=== PATIENT | female | born 1965 | race Caucasian/White ===

== ENCOUNTER 2023-12-26 15:03 | Outpatient (AMB) | payer OTHER, SELFPAY ==
--- NOTE | 2023-12-26 15:33 | MHC.PC.OV ---
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 Transferring care from Dr. Sheldon [facility]. Medical records have been requested. Exercise Physiology Professor Required: No Accompanied by: Self / Same As Patient Allergies No Known Allergies Allergy (Verified 12/26/23 15:52) Medication List - Last Reconciled 12/26/23 by Johan Huynh PA-C cyclobenzaprine 5 mg PO DAILY gabapentin 300 mg PO DAILY levothyroxine 75 mcg PO .morning Tobacco use date assessed: 12/26/23 Dental Screening Dental Screen Date: 12/26/23 Did you have a dental visit in the last 12 months?: No Did you have a dental problem in the last 6 months where you did not have access to dental care?: No Was dental information given to patient?: Patient has dentist HPI 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 Previous PCP was Dr. Venegas at a family medicine practice. Patient's past medical history significant for hypothyroidism, knee osteoarthritis, h/o of thoracic syndrome, asthma ( mild). 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 Thoracic outlet syndrome: Continues to use gabapentin and cyclobenzaprine on a as needed basis for her upper extremity pain. .. Hypothyroidism: Patient continues on levothyroxine 75 mcg which has been keeping her TSH stable for quite a while now. She reports having some medial right knee pain over the last several weeks. .. 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 1. Little interest or pleasure in doing things: not at all 2. Feeling down, depressed, or hopeless: not at all 3. Trouble falling or staying asleep, or sleeping too much: not at all 4. Feeling tired or having little energy: not at all 5. Poor appetite or overeating: not at all 6. Feeling bad about yourself - or that you are a failure or have let yourself or your family down: not at all 7. Trouble concentrating on things, such as reading the newspaper or watching television: not at all 8. Moving or speaking so slowly that other people could have noticed. Or the opposite - being so fidgety or restless that you have been moving around a lot more than usual: not at all 9. Thoughts that you would be better off or of hurting yourself in some way: not at all Total score: 0 Depression Screening Interpretation: Negative Depression Screening Done: Yes 24434 - PHQ-9 Billing: Yes Source: Developed by Drs. Dhaval Dinh, Kelly Jordan, Peter Agarwal and colleagues, with an educational andreina from [employer]. Thrive Questionnaire Date Thrive assessed: 12/26/23 I am a: Patient What is your living situation today?: I have a steady place to live Within the past 12 months, did the food you bought not last and you didn't have the money to get more?: Never true Within the past 12 months, did you worry whether your food would run out before you got money to buy more?: Never true Do you have trouble paying for medicines?: No Do you have trouble getting transportation to medical appointments?: No Do you have trouble paying your heating and electricity bill?: No Do you have trouble taking care of your child, family member or friend?: No Do you have trouble with day-to-day activities such as bathing, preparing meals, shopping, managing finances, etc.?: No Are you currently unemployed and looking for a job?: No Are you interested in more education?: No Please select the resources that you would like help with: None Currently or been in a relationship where the following occur: no concerns reported THRIVE Score: 0 AUDIT C Alcohol Use Questionnaire (AUDIT-C) 1. How often do you have a drink containing alcohol?: Never 3. How often do you have six or more drinks on one occasion?: Never Total Score: 0 REKHA-7 AMB Questionnaire REKHA-7 Date REKHA - 7 assessed: 12/26/23 Feeling nervous, anxious, or on edge: 2 = More than half the days Not being able to stop or control worryin = Several days Worrying too much about different things: 1 = Several days Trouble relaxin = More than half the days Being so restless that it is hard to sit still: 1 = Several days Becoming easily annoyed or irritable: 2 = More than half the days Feeling afraid as if something awful might happen: 0 = Not at all Total REKHA-7 score (0-4 normal; 5-9 mild; 10-14 moderate; 15-21 severe): 9 Source: Developed by Drs. Dhaval Dinh, Kelly Jordan, Peter Agarwal and colleagues, with an educational andreina from [employer]. REKHA-7 Assessment Billing REKHA-7 Assessment Tool: REKHA-7 Assessment 84242 Review of Systems Const Denies headache(s) Eyes Denies loss of vision ENT Denies vertigo, Denies dizziness, Denies headache(s) and Denies sore throat Card Denies chest pain, Denies leg edema and Denies lightheadedness Resp Denies cough, Denies hemoptysis and Denies wheezing GI Denies abdominal pain, Denies melena, Denies constipation, Denies diarrhea and Denies vomiting Denies urinary frequency, Denies dysuria and Denies urinary urgency Musc Denies arthralgias, Denies joint swelling, Denies numbness and Denies tingling Neuro Denies Abnormal speech present, Denies behavioral changes, Denies vertigo, Denies dizziness, Denies headache(s), Denies loss of vision, Denies memory loss, Denies numbness and Denies tingling Psych Denies anxiety, Denies behavioral changes, Denies depression, Denies memory loss and Denies panic attacks Rudy/Lymph Denies easy bleeding and Denies easy bruising Aller/Immun Denies wheezing Physical exam (Primary Care) Vital Signs: Last Vital Signs Pulse 88 12/26/23 15:34 Pulse Ox 99 12/26/23 15:34 Oxygen Delivery Method Room Air 12/26/23 15:34 BMI result Body Mass Index 26.0 Tobacco/Smoking Status: Tobacco use Status Tobacco use date assessed 12/26/23 12/26/23 15:51 Patient Tobacco Use Status Never used Tobacco 12/26/23 15:58 e-Cigarette/Vaping Use Never Used 12/26/23 15:58 PHQ-9: PHQ-9 Score PHQ-9: Total score 0 12/26/23 15:53 Depression Screening Interpretation: Negative Thrive Assessment: Date of Thrive Assessment Date Thrive assessed 12/26/23 12/26/23 15:51 Currently or been in a relationship where the following occur: no concerns reported Const General: healthy appearing, no acute distress, alert and awake Nutritional Appearance: well nourished Orientation/consciousness: oriented to person, oriented to place and oriented to time HENMT Ears: TM's normal bilaterally General nose exam: Normal nasal mucous membranes and turbinates present Eyes Conjunctivae: conjunctivae normal Sclerae: sclerae normal Pupils: Equal, round and reactive pupils present Neck Neck: Yes no lymphadenopathy and Yes no JVD Thyroid: Thyroid normal Carotids: no bruits Resp Effort & Inspection: normal respiratory effort and not tachypneic Auscultation: no crackles, no rales, no rhonchi and no wheezes Cardio Rate: regular rate Rhythm: regular rhythm Heart sounds: no murmurs and normal S1 and S2 GI Palpation (GI): Soft to palpation, nontender, no hepatomegaly and no splenomegaly Auscultation: normal bowel sounds Skin General skin exam: no rashes or lesions noted and dry skin Neuro General: oriented to person, oriented to place and oriented to time Cranial nerves: Yes Equal, round and reactive pupils present Speech: No Abnormal speech present Gait exam (Neuro): Normal gait present Motor exam (neuro): no tremor noted Extrem Right upper extremity: full ROM Left upper extremity: full ROM Right lower extremity: full ROM; no edema Left lower extremity: full ROM; no edema Psych Mental Status: mental status grossly normal Speech and movement: Normal speech and movement present Affect: normal affect Attitude: cooperative Thought process: Normal thought process present Assessment and Plan Assessment & Plan (1) Hypothyroid: Code(s): E03.9 - Hypothyroidism, unspecified Qualifiers: Hypothyroidism type: unspecified Qualified Code(s): E03.9 - Hypothyroidism, unspecified Plan: Patient continues on levothyroxine 75 mcg. Will recheck TSH to assure normal (2) Thoracic outlet syndrome: Code(s): G54.0 - Brachial plexus disorders Plan: Has a history of thoracic outlet syndrome which has led to neuromuscular pain in her upper extremities. She continues with gabapentin and cyclobenzaprine on an as-needed basis. (3) Screening for diabetes mellitus (DM): Code(s): Z13.1 - Encounter for screening for diabetes mellitus (4) H/O colonoscopy: Comment: DONE in 2019- family history colon screening Code(s): Z98.890 - Other specified postprocedural states (5) Breast cancer screening: Code(s): Z12.39 - Encounter for other screening for malignant neoplasm of breast Qualifiers: Breast cancer screening modality: mammogram Qualified Code(s): Z12.31 - Encounter for screening mammogram for malignant neoplasm of breast Plan: Willing to do mammogram (6) MCL sprain of right knee: Code(s): S83.411A - Sprain of medial collateral ligament of right knee, initial encounter Qualifiers: Encounter type: subsequent encounter Qualified Code(s): S83.411D - Sprain of medial collateral ligament of right knee, subsequent encounter Plan: Patient has some recent pain in the medial aspect of her right knee. Likely MCL sprain. Will benefit from physical therapy. (7) Osteoarthritis of hands, bilateral: Code(s): M19.041 - Primary osteoarthritis, right hand; M19.042 - Primary osteoarthritis, left hand Qualifiers: Osteoarthritis type: primary Qualified Code(s): M19.041 - Primary osteoarthritis, right hand; M19.042 - Primary osteoarthritis, left hand (8) Borderline high cholesterol: Code(s): E78.9 - Disorder of lipoprotein metabolism, unspecified Plan: Has a history of borderline high cholesterol. Does have a healthy lifestyle and eating habits. Will continue to follow fasting lipid panel. (9) REKHA (generalized anxiety disorder): Code(s): F41.1 - Generalized anxiety disorder Plan: Patient's REKHA-7 score positive for anxiety which has been existing condition for her. She has not interested in medication or mental health therapy at this time. Orders: Orders TSH reflex Free T4 12/26/23 E03.9 - Hypothyroidism, unspecified Cyclic Citrullinated Peptide 12/26/23 M19.041 - Primary osteoarthritis, right hand, M19.042 - Primary osteoarthritis, left hand Rheumatoid Factor 12/26/23 M19.041 - Primary osteoarthritis, right hand, M19.042 - Primary osteoarthritis, left hand PADMINI Reflex Titer and Pattern 12/26/23 M19.041 - Primary osteoarthritis, right hand, M19.042 - Primary osteoarthritis, left hand PT Evaluation and Treatment 12/26/23 M51.9 - Unspecified thoracic, thoracolumbar and lumbosacral intervertebral disc disorder MM screening mammo BI 12/26/23 Z12.31 - Encounter for screening mammogram for malignant neoplasm of breast Comprehensive [place]. Panel Fast 12/26/23 Z13.1 - Encounter for screening for diabetes mellitus Lipid Panel 12/26/23 E78.9 - Disorder of lipoprotein metabolism, unspecified Coding Level of Care Code Tele New Pt Level 4 (14337) Diagnoses Hypothyroidism, unspecified type E03.9 Hypothyroidism type: unspecified Thoracic outlet syndrome G54.0 Screening for diabetes mellitus (DM) Z13.1 H/O colonoscopy Z98.890 Encounter for screening mammogram for malignant neoplasm of breast Z12.31 Breast cancer screening modality: mammogram Sprain of medial collateral ligament of right knee, subsequent encounter S83.411D Encounter type: subsequent encounter Primary osteoarthritis of both hands M19.041; M19.042 Osteoarthritis type: primary Borderline high cholesterol E78.9 REKHA (generalized anxiety disorder) F41.1 Additional Codes REKHA-7 Assessment Billing - REKHA-7 Assessment Tool: REKHA-7 Assessment [id number] ([id number])
[2023-12-26 15:34] VITALS: PULSE 88; O2SAT 99; BMI 26.0
== END 2023-12-26 16:36 | disposition home or self-care (01) ==
PROVIDERS: PCP Physician Assistant; Visit Provider Physician Assistant
DX: E03.9 Hypothyroidism, unspecified (principal); G54.0 Brachial plexus disorders; F41.1 Generalized anxiety disorder; E78.9 Disorder of lipoprotein metabolism, unspecified; S83.411D Sprain of medial collateral ligament of right knee, subsequent encounter; M19.041 Primary osteoarthritis, right hand; M19.042 Primary osteoarthritis, left hand
CPT/HCPCS: 99204

== ENCOUNTER 2024-02-08 08:33 | Outpatient (REF) | payer OTHER, SELFPAY ==
--- NOTE | ~2024-02-08 | MM_ITS ---
EXAMINATION: MM SCREENING DIGITAL BREAST TOMOSYNTHESIS, BILATERAL CLINICAL INFORMATION: Screening. Asymptomatic. COMPARISON: Mammography: 08/06/2021. ([place], [place]). History of benign right breast biopsy. TECHNIQUE: Digital breast tomosynthesis is performed in both the craniocaudal and mediolateral oblique views along with computer-aided detection (CAD). Synthesized 2D images are generated from the tomosynthesis. FINDINGS: The breasts are heterogeneously dense, which may obscure small masses (ACR BI-RADS breast composition Category c). Post benign biopsy clip noted in the right breast anterior one third, upper outer quadrant. There are no suspicious masses, suspicious grouped calcifications, or areas of architectural distortion in either breast. The parenchymal pattern is stable from prior exams. No skin or axillary abnormality. MM/MM tomosynthesis screening BI IMPRESSION: No mammographic evidence of malignancy. No significant interval change. ASSESSMENT: BI-RADS BI-RADS 2 - Benign Findings RECOMMENDATION: Routine annual mammography screening. 1 year F/U This examination should not preclude the clinical evaluation of a suspicious palpable abnormality. This patient's information was entered into a reminder system with a target due date for their next mammogram.
== END 2024-02-08 08:34 | disposition home or self-care (01) ==
LOC: HO.MAMMO 08:33
PROVIDERS: PCP Physician Assistant; Visit Provider Physician Assistant
DX: Z12.31 Encounter for screening mammogram for malignant neoplasm of breast (principal)
CPT/HCPCS: 77063; 77067

== ENCOUNTER → 2024-02-08 08:45 | Outpatient (BNV) | payer OTHER, SELFPAY | PROVIDERS: PCP Physician Assistant; Visit Provider Radiology Diagnostic Radiology | DX: Z12.31 Encounter for screening mammogram for malignant neoplasm of breast (principal) | CPT/HCPCS: 77063; 77067 ==

== ENCOUNTER 2024-08-01 10:35 | Outpatient (REF) | payer MEDICARE, SELFPAY ==
[2024-08-01 11:57] LABS: Alanine Aminotransferase 20 U/L (0-31); Albumin Level 4.4 g/dL (3.5-5.0); Alkaline Phosphatase 88 U/L (39-117); Anion Gap 12 (12-20); Aspartate Amino Transferase 19 U/L (5-31); Bilirubin Total 0.4 mg/dL (0.0-1.0); Blood Urea Nitrogen 7 mg/dL (9-16); Calcium 10.3 mg/dL (8.4-10.2); Carbon Dioxide 29 mmol/L (22-29); Chloride 101 mmol/L (96-108); Cholesterol 205 mg/dL (<200); Estimated Glomerular Filt Rate > 60; Glucose Fasting 81 mg/dL (60-99); HDL Cholesterol 81 mg/dL (>40); LDL Cholesterol Calculated 101 mg/dL (<100); Potassium 4.3 mmol/L (3.3-5.1); Sodium 138 mmol/L (135-145); Total Protein 7.3 g/dL (6.5-8.0); Triglycerides 116 mg/dL (<150)
[2024-08-01 12:10] LABS: Rheumatoid Factor 24.3 IU/mL (<15.0)
[2024-08-01 12:14] LABS: TSH reflex Free T4 0.54 uIU/mL (0.32-4.0)
[2024-08-05 13:58] LABS: Anti Nuclear Antibody Screen NEGATIVE (NEGATIVE)
[2024-08-06 20:33] LABS: Cyclic Citrullinated Peptide <16 UNITS
== END 2024-08-01 10:36 | disposition home or self-care (01) ==
LOC: HO.LAB 10:35
PROVIDERS: PCP Physician Assistant; Visit Provider Physician Assistant
DX: M19.041 Primary osteoarthritis, right hand (principal); M19.042 Primary osteoarthritis, left hand; E78.9 Disorder of lipoprotein metabolism, unspecified; E03.9 Hypothyroidism, unspecified; Z13.1 Encounter for screening for diabetes mellitus
CPT/HCPCS: 36415; 80053; 80061; 84443; 86038; 86200; 86431

== ENCOUNTER 2024-08-08 13:23 | Outpatient (AMB) | payer OTHER, SELFPAY ==
--- NOTE | 2024-08-08 13:24 | A.OFFPC_ITS ---
Vital Signs 08/08/24 13:30 Height 5 ft 4.76 in Weight 143 lb 8 oz BMI 24.1 BP 104/62 Blood Pressure Location Lt brachial Position Sitting Pulse 103 H Pulse Source Pulse Oximeter Pulse Oximetry (%) 96 Oxygen Delivery Method Room Air Intake Visit Reasons: PE Intake Note: Patient is here today for a physical. External Relations Director Required: No Accompanied by: Self / Same As Patient Allergies No Known Allergies Allergy (Verified 08/08/24 13:31) Medication List - Last Reconciled 08/08/24 by Johan Huynh PA-C cyclobenzaprine 5 mg PO DAILY 90 days gabapentin 300 mg PO DAILY 90 days levothyroxine 75 mcg PO .morning 90 days Tobacco use date assessed: 12/26/23 Dental Screening Dental Screen Date: 12/26/23 HPI PE HPI Details Patient is a 59-year-old female here today for a routine annual physical. Patient's past medical history significant for hypothyroidism, knee osteoarthritis, h/o of thoracic syndrome, asthma ( mild). 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 Concern--> she has broken out with dry itchy skin over scalp and has been using topical moisturizing cream which has been somewhat helpful. .. Thoracic outlet syndrome: Continues to use gabapentin and cyclobenzaprine on a as needed basis for her upper extremity pain. .. Hypothyroidism: Patient continues on levothyroxine 75 mcg which has been keeping her TSH stable for quite a while now. Borderline high cholesterol: Most recent lipid panel showing slightly high cholesterol at 203. She will work on dietary modifications to reduce her cholesterol. .. Mammogram: Mammogram done January of 2024-BI-RADS 1 .. 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 Vacine: NEeds FLu vaccine though will get it at a local pharmacy Reviewed patient's labs with patient and noted a slightly borderline high total cholesterol Laboratory Tests 08/01/24 10:45 Creatinine 0.75 Cholesterol 205 H TSH 0.54 Rheumatoid Factor 24.3 H PFSH Surgical History H/O mastoidectomy H/O colonoscopy S/P nasal septoplasty Hx laparoscopic cholecystectomy Family History Mother Breast cancer Colon cancer Father High cholesterol Social History (Updated 08/08/24 @ 13:37 by Johan Huynh PA-C) Housing: Condominium Alcohol intake: current Alcohol intake frequency: holidays/special occasions only Patient Tobacco Use Status: Never used Tobacco e-Cigarette/Vaping Use: Never Used service: No Current occupational status: employed 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 1. Little interest or pleasure in doing things: not at all 2. Feeling down, depressed, or hopeless: not at all 3. Trouble falling or staying asleep, or sleeping too much: not at all 4. Feeling tired or having little energy: not at all 5. Poor appetite or overeating: not at all 6. Feeling bad about yourself - or that you are a failure or have let yourself or your family down: not at all 7. Trouble concentrating on things, such as reading the newspaper or watching television: not at all 8. Moving or speaking so slowly that other people could have noticed. Or the opposite - being so fidgety or restless that you have been moving around a lot more than usual: not at all 9. Thoughts that you would be better off or of hurting yourself in some way: not at all Total score: 0 Depression Screening Interpretation: Negative Depression Screening Done: Yes 79780 - PHQ-9 Billing: Yes Source: Developed by Drs. Dhaval Dinh, Kelly Jordan, Peter Agarwal and colleagues, with an educational andreina from [employer]. Thrive Questionnaire Date Thrive assessed: 08/08/24 I am a: Patient What is your living situation today?: I have a steady place to live Within the past 12 months, did the food you bought not last and you didn't have the money to get more?: Sometimes True Within the past 12 months, did you worry whether your food would run out before you got money to buy more?: Sometimes True Do you have trouble paying for medicines?: No Do you have trouble getting transportation to medical appointments?: No Do you have trouble paying your heating and electricity bill?: Yes Do you have trouble taking care of your child, family member or friend?: No Do you have trouble with day-to-day activities such as bathing, preparing meals, shopping, managing finances, etc.?: No Are you currently unemployed and looking for a job?: No Are you interested in more education?: Yes Please select the resources that you would like help with: None Currently or been in a relationship where the following occur: No concerns reported THRIVE Score: 3 AUDIT C Alcohol Use Questionnaire (AUDIT-C) 1. How often do you have a drink containing alcohol?: Never 2. How many drinks containing alcohol do you have on a typical day when you are drinking?: 1 or 2 3. How often do you have six or more drinks on one occasion?: Never Total Score: 0 REKHA-7 AMB Questionnaire REKHA-7 Date REKHA - 7 assessed: 08/08/24 Feeling nervous, anxious, or on edge: 1 = Several days Not being able to stop or control worryin = Not at all Worrying too much about different things: 1 = Several days Trouble relaxin = Several days Being so restless that it is hard to sit still: 0 = Not at all Becoming easily annoyed or irritable: 0 = Not at all Feeling afraid as if something awful might happen: 0 = Not at all Total REKHA-7 score (0-4 normal; 5-9 mild; 10-14 moderate; 15-21 severe): 3 Source: Developed by Drs. Dhaval Dinh, Kelly Jordan, Peter Agarwal and colleagues, with an educational andreina from [employer]. REKHA-7 Assessment Billing REKHA-7 Assessment Tool: REKHA-7 Assessment 56066 Review of Systems Const Denies body aches, Denies chills, Denies excessive sweating, Denies fatigue, Denies fever(s) and Denies headache(s) Eyes Denies blurry vision ENT Denies dysphagia, Denies vertigo, Denies dizziness, Denies headache(s), Denies hearing loss and Denies tinnitus Card Denies chest pain, Denies chest pain with activity, Denies syncope, Denies irregular heart rhythm and Denies dyspnea Resp Denies chest congestion, Denies cough, Denies hemoptysis, Denies dyspnea and Den ies wheezing GI Denies abdominal pain, Denies melena, Denies hematochezia, Denies coffee ground emesis, Denies dysphagia, Denies diarrhea, Denies nausea and Denies vomiting Denies urinary frequency, Denies dysuria, Denies urinary hesitancy and Denies urinary urgency Musc Denies arthralgias, Denies limited range of motion, Denies muscle cramps and Denies muscle weakness Skin/Breast Denies rash and Denies skin ulcer Neuro Denies Abnormal speech present, Denies confusion, Denies vertigo, Denies dizziness, Denies syncope, Denies headache(s), Denies memory loss and Denies seizure-like activity Psych Denies anxiety, Denies confusion, Denies depression, Denies memory loss, Denies panic attacks and Denies paranoia Endo Denies excessive sweating, Denies fatigue, Denies flushing, Denies polydipsia and Denies polyuria Aller/Immun Denies wheezing Physical exam (Primary Care) Vital Signs: Last Vital Signs Pulse 103 H 08/08/24 13:30 BP 104/62 08/08/24 13:30 Pulse Ox 96 08/08/24 13:30 Oxygen Delivery Method Room Air 08/08/24 13:30 BMI result Body Mass Index 24.1 Tobacco/Smoking Status: Tobacco use Status Tobacco use date assessed 12/26/23 08/08/24 13:27 Patient Tobacco Use Status Never used Tobacco 08/08/24 13:27 e-Cigarette/Vaping Use Never Used 08/08/24 13:27 PHQ-9: PHQ-9 Score PHQ-9: Total score 0 08/08/24 13:27 Depression Screening Interpretation: Negative Thrive Assessment: Date of Thrive Assessment Date Thrive assessed 08/08/24 08/08/24 13:27 Currently or been in a relationship where the following occur: No concerns reported Const General: cooperative, comfortable, no acute distress, alert and awake; No confusion Orientation/consciousness: oriented to person, oriented to place, patient oriented x3 and No confusion HENMT Head: Yes normocephalic Ears: external ears normal and TM's normal bilaterally Face and sinus: No sinus tenderness Mouth: Normal oral and palatal mucosa present and tongue normal Teeth and gingiva: dentition normal and gingiva normal Throat: Yes posterior oropharynx normal, Yes tonsils normal and Yes uvula midline Eyes Conjunctivae: conjunctivae normal Sclerae: sclerae normal Pupils: Equal, round and reactive pupils present EOM: EOMs intact bilaterally Direct Ophthalmoscopy: No no photophobia Neck Neck: Yes no lymphadenopathy, No tender and Yes no JVD Thyroid: Thyroid normal Carotids: no bruits Chest Chest palpation & inspection: no tenderness Resp Effort & Inspection: normal respiratory effort, no audible wheezes, not labored and no stridor Auscultation: no crackles, no rales, no rhonchi and no wheezes Cardio Jugular venous distension: no JVD Rate: regular rate, not bradycardic and not tachycardic Rhythm: regular rhythm Bruits: no carotid bruits Peripheral pulses: Peripheral pulses 2+ throughout GI Inspection: Yes normal to inspection, No abdominal wall ecchymosis and No visible herniation Palpation (GI): Soft to palpation, nontender, no guarding, not rigid and No hepatosplenomegaly present Auscultation: normoactive bowel sounds General: Yes no CVA tenderness Back/Spine/Pelvis Back: no CVA tenderness and No back tenderness Cervical Spine: cervical ROM normal Thoracic/Lumbar Spine: thoracic and lumbar spine normal to inspection, straight leg raise negative bilaterally, No thoraco-lumbar ROM limited and No lumbar spinal tenderness Skin Lesions: no lesions Rashes: no rashes Wounds: no wounds Neuro General: oriented to person, oriented to place, patient oriented x3, CN's II-XI intact bilaterally and No confusion Cranial nerves: Yes Equal, round and reactive pupils present and Yes Normal accommodation reflex present Cognition (Neuro): normal cognition Speech: No Abnormal speech present Gait exam (Neuro): Normal gait present Motor exam (neuro): 5/5 motor strength present throughout Extrem Right upper extremity: full ROM; no cyanosis Left upper extremity: full ROM; no cyanosis Right lower extremity: no edema Left lower extremity: no edema Psych Appearance: grossly normal Mental Status: mental status grossly normal Affect: normal affect Attitude: cooperative Thought process: Normal thought process present Office Procedures Flu Questionnaire Does the patient have a severe egg allergy?: No Immunizations Fluarix Triv [id number] (PF) 45 mcg (15 mcg x 3)/0.5 mL IM syringe Performing Provider: Johan Huynh PA-C [place] [facility] [place] [facility] Documented (not given) by: ALANNAH Alarcon on 08/08/24 13:30 Reason Not Given: Patient Refused Coding Level of Care Code Est Pt Prev Care 40-64y(20306) Diagnoses Annual physical exam Z00.00 Hypothyroidism, unspecified type E03.9 Hypothyroidism type: unspecified Borderline high cholesterol E78.9 Thoracic outlet syndrome G54.0 Intrinsic eczema L20.84 Eczema type: intrinsic Cervical cancer screening Z12.4 Additional Codes REKHA-7 Assessment Billing - REKHA-7 Assessment Tool: REKHA-7 Assessment 20372 ([id number]) Assessment & Plan Assessment & Plan (1) Annual physical exam: Code(s): Z00.00 - Encounter for general adult medical examination without abnormal findings Category: Medical Plan: As per [facility] (2) Hypothyroid: Code(s): E03.9 - Hypothyroidism, unspecified Category: Medical Qualifiers: Hypothyroidism type: unspecified Qualified Code(s): E03.9 - Hypothyroidism, unspecified Plan: Patient continues on levothyroxine 75 mcg with good effect. Most recent TSH stable. Will continue following TSH to assure normal. (3) Borderline high cholesterol: Code(s): E78.9 - Disorder of lipoprotein metabolism, unspecified Category: Medical Plan: Patient's most recent lipid panel showing borderline high total cholesterol. She will work on dietary modifications to reduce her cholesterol. Goal total cholesterol to be below 200 (4) Thoracic outlet syndrome: Code(s): G54.0 - Brachial plexus disorders Category: Medical Plan: As per HPI patient has a history of thoracic outlet syndrome that was treated surgically. She continues with gabapentin and cyclobenzaprine for pain with good effect. (5) Eczema: Code(s): L30.9 - Dermatitis, unspecified Category: Medical Qualifiers: Eczema type: intrinsic Qualified Code(s): L20.84 - Intrinsic (allergic) eczema Plan: Patient has noted dry itchy skin on the head. Will supply patient with a topical steroid solution to use to reduce inflammation and itch. (6) Cervical cancer screening: Code(s): Z12.4 - Encounter for screening for malignant neoplasm of cervix Category: Medical Plan: Patient willing to get Pap screening Orders: Orders Influenza [id number] Immunization Today Z23 - Encounter for immunization Lipid Panel Today E78.9 - Disorder of lipoprotein metabolism, unspecified Comprehensive [place]. Panel Fast Today E78.9 - Disorder of lipoprotein metabolism, unspecified Complete Blood Count no Diff Today E78.9 - Disorder of lipoprotein metabolism, unspecified TSH reflex Free T4 6 Months E03.9 - Hypothyroidism, unspecified Referrals CHEMICAL APPLICATOR Referral Z12.4 - Encounter for screening for malignant neoplasm of cervix Medications: New clobetasol 0.05% 1 appl topical BEDTIME 15 days 50 mL 0RF L30.9 - Dermatitis, unspecified Refilled gabapentin 300 mg PO DAILY 90 days 90 caps 1RF G54.0 - Brachial plexus disorders
[2024-08-08 13:30] VITALS: BP 104/62; PULSE 103; O2SAT 96; BMI 24.1
== END 2024-08-08 14:33 | disposition home or self-care (01) ==
PROVIDERS: PCP Physician Assistant; Visit Provider Physician Assistant
DX: Z00.00 Encounter for general adult medical examination without abnormal findings (principal); E03.9 Hypothyroidism, unspecified; E78.9 Disorder of lipoprotein metabolism, unspecified; G54.0 Brachial plexus disorders; L20.84 Intrinsic (allergic) eczema; Z12.4 Encounter for screening for malignant neoplasm of cervix; Z23 Encounter for immunization

== ENCOUNTER → 2024-08-08 13:23 | Outpatient (BNVA) | payer OTHER, SELFPAY | PROVIDERS: PCP Physician Assistant; Visit Provider Physician Assistant | DX: Z00.00 Encounter for general adult medical examination without abnormal findings (principal); E03.9 Hypothyroidism, unspecified; E78.9 Disorder of lipoprotein metabolism, unspecified; G54.0 Brachial plexus disorders; L20.84 Intrinsic (allergic) eczema; Z79.899 Other long term (current) drug therapy | CPT/HCPCS: 90471; 96127 ==